=== PATIENT | female | born 1990 | race Caucasian/White ===

== ENCOUNTER 2019-02-09 07:25 | Day surgery (SDC) | payer OTHER ==
[~2019-02-09 07:25] MED LIST: CEFAZOLIN 2 GM/50 ML (PMX) 50 ML IVPB; SEVOFLURANE 15 MIN; SOD CHLORIDE 0.9% 1,000 ML IV
[2019-02-09] MEDS ORDERED: MIDAZOLAM 1 MG/ML 2 ML INJ ×3 (11:10→13:19)
[2019-02-09] MEDS: BUPIVACAINE 0.25% (MPF) 30 ML INJ (11:25)
[2019-02-09] MEDS ORDERED: CEFAZOLIN 1 GM INJ (11:50)
[2019-02-09] MEDS ORDERED: PROPOFOL 20 ML (11:50)
[2019-02-09] MEDS ORDERED: GLYCOPYRROLATE 0.4 MG INJ (11:50)
[2019-02-09] MEDS ORDERED: ROCURONIUM 50 MG INJ (11:50)
[2019-02-09] MEDS ORDERED: LIDOCAINE 2% (SDV) 5 ML INJ (11:50)
[2019-02-09] MEDS ORDERED: ONDANSETRON 4 MG INJ (11:50)
[2019-02-09] MEDS ORDERED: NEOSTIGMINE 3 MG/3 ML SYRINGE (11:50)
[2019-02-09] MEDS ORDERED: KETOROLAC 30 MG INJ (12:09)
[2019-02-09] MEDS: ONDANSETRON 4 MG INJ IV (12:23)
[2019-02-09] MEDS: MEPERIDINE 25 MG INJ IV (12:23)
[2019-02-09] MEDS: HYDROmorphONE 1 MG/5 ML IV SYRINGE IV ×3 (12:23→12:38)
[2019-02-09] MEDS ORDERED: DIPHENHYDRAMINE 50 MG INJ IV (12:30)
[2019-02-09] MEDS: FENTAnyl 50 MCG/ML VIAL IV (12:46)
[2019-02-09] MEDS: HYDROCODONE/APAP (5/325) TAB PO (13:07)
[2019-02-09] MEDS: METOCLOPRAMIDE 10 MG INJ IV (13:14)
[2019-02-09] MEDS: MIDAZOLAM 1 MG/ML 2 ML INJ IV (13:26)
== END 2019-02-09 14:45 | disposition home or self-care (01) ==
LOC: SDS 07:25
DX: K80.10 Calculus of gallbladder with chronic cholecystitis without obstruction (principal)
CPT/HCPCS: 47562; 88304